=== PATIENT | male | born 1965 | race Caucasian/White ===

== ENCOUNTER 2019-03-30 00:38 | Emergency (ER) | payer OTHER ==
[~2019-03-30] VITALS: Ht 175.3 cm; Wt 81.7 kg
[2019-03-30] MEDS ORDERED: DIPHENHIST50 MG PO (00:55)
[2019-03-30] MEDS ORDERED: SUDAFED 12 HOU120 MG PO (00:56)
[2019-03-30 01:15] LABS: ABSOLUTE BASOPHILS 0.1 thou/uL (0.0-0.2); ABSOLUTE EOSINOPHILS 0.1 thou/uL (0.0-0.7); ABSOLUTE LYMPHOCYTES 2.2 thou/uL (0.8-5.3); ABSOLUTE MONOCYTES 1.3 thou/uL (0.0-1.2); ABSOLUTE NEUTROPHILS 7.3 thou/uL (1.6-8.1); BASOPHILS 0.7 %; EOSINOPHILS 0.6 %; HEMATOCRIT 47.3 % (42.0-52.0); HEMOGLOBIN 16.5 gm/dL (14.0-18.0); LYMPHOCYTES 20.4 %; MCH 33.5 pg (26.0-34.0); MCHC 34.9 g/dL (28.0-37.0); MCV 96.1 fL (80.0-100.0); MONOCYTES 11.7 %; MPV 9.6 fl. (7.2-11.1); NUCLEATED RBCS 0 /100WBC; PLATELET COUNT* 232 thou/uL (150-400); POLYS 66.6 %; RBC 4.92 mil/uL (4.50-6.00); RDW-CV 12.7 % (10.5-14.5); WBC 10.9 thou/uL (4.0-11.0)
[2019-03-30 01:21] LABS: URINE BILIRUBIN NEGATIVE (Negative); URINE BLOOD NEGATIVE (Negative); URINE CLARITY CLEAR; URINE COLOR YELLOW; URINE GLUCOSE-RANDOM NEGATIVE (Negative); URINE KETONES NEGATIVE (Negative); URINE LEUKOCYTES-REFLEX NEGATIVE (Negative); URINE NITRITE-REFLEX NEGATIVE (Negative); URINE PROTEIN 1+ (Negative); URINE SPECIFIC GRAVITY <= 1.005 (1.005-1.030); URINE UROBILINOGEN 0.2 E.U./dl (0.2-1.0)
[2019-03-30 01:28] LABS: CALCIUM 9.8 mg/dL (8.5-10.1); CREATININE 0.9 mg/dL (0.6-1.3); POTASSIUM 4.2 mmol/L (3.5-5.1)
[2019-03-30 01:32] LABS: MAGNESIUM 1.9 mg/dL (1.8-2.4); TOTAL BILIRUBIN 0.9 mg/dL (<0.1-1.0)
[2019-03-30] MEDS ORDERED: ZOFRAN ODT4 MG DISSOLVE (02:19)
[2019-03-30] MEDS ORDERED: NORCO 5-325 TA1 EAC1 PO (03:02)
[2019-03-30] MEDS ORDERED: LEVAQUIN 750 M750 MG PO (03:02)
[2019-03-30 03:16] VITALS: BP 130/84
--- NOTE | 2019-03-31 14:20 | EKG ---
[place] [address] ELECTROCARDIOGRAM REPORT Name: ROXANA HERR Room: [facility]#: [id number] Admission: 03/30/19 Attend Phys: Discharge: 03/30/19 Date of : 69 Report #: [id number] THIS REPORT FOR: //name// [facility] ED Test Date: 2019-03-30 Test Time: 01:00:20 Pat Name: ROXANA HERR Department: Room: Gender: Syrup Maker: : 1965 Requested By: Rob Henson Order Number: [id number] MD: Rusty Krishna Measurements Intervals [place] Rate: 113 P: 48 TN: 113 QRS: 74 QRSD: 86 T: 68 QT: 326 QTc: 447 Interpretive Statements Sinus tachycardia Baseline wander in lead(s) V2 No previous ECG available for comparison Electronically Signed On 03-31-2019 14:20:25 CDT by Rusty Krishna [email or web address] <ELECTRONICALLY SIGNED> By: Yash Krishna MD, [facility] 03/31/19 1420 0100 Yash Krishna MD, FACC /EPI
== END 2019-03-30 03:19 | disposition home or self-care (01) ==
LOC: M.ERS 00:38
PROVIDERS: Emergency Medicine Emergency Medical Services
DX: K52.9 Noninfective gastroenteritis and colitis, unspecified (principal)

== ENCOUNTER 2019-05-02 18:58 | Emergency (ER) | payer OTHER ==
[~2019-05-02] VITALS: Ht 175.3 cm; Wt 74.8 kg
[~2019-05-02 18:58] MED LIST: DIPHENHIST50 MG PO; LEVAQUIN 750 M750 MG PO; NORCO 5-325 TA1 EAC1 PO; SUDAFED 12 HOU120 MG PO; ZOFRAN ODT4 MG DISSOLVE
[2019-05-02 19:28] LABS: ABSOLUTE BASOPHILS 0.1 thou/uL (0.0-0.2); ABSOLUTE EOSINOPHILS 0.1 thou/uL (0.0-0.7); ABSOLUTE MONOCYTES 0.8 thou/uL (0.0-1.2); ABSOLUTE NEUTROPHILS 6.1 thou/uL (1.6-8.1); BASOPHILS 0.7 %; EOSINOPHILS 0.8 %; HEMATOCRIT 45.5 % (42.0-52.0); HEMOGLOBIN 15.9 gm/dL (14.0-18.0); LYMPHOCYTES 29.6 %; MCH 33.5 pg (26.0-34.0); MCHC 34.9 g/dL (28.0-37.0); MCV 96.2 fL (80.0-100.0); MONOCYTES 8.2 %; MPV 9.6 fl. (7.2-11.1); NUCLEATED RBCS 0 /100WBC; PLATELET COUNT* 241 thou/uL (150-400); POLYS 60.7 %; RBC 4.73 mil/uL (4.50-6.00)
[2019-05-02 19:33] LABS: CALCIUM 8.8 mg/dL (8.5-10.1); POTASSIUM 3.4 mmol/L (3.5-5.1)
[2019-05-02 19:43] LABS: ALBUMIN 3.9 g/dL (3.4-5.0); TOTAL BILIRUBIN 0.2 mg/dL (<0.1-1.0); TOTAL PROTEIN 8.4 g/dL (6.4-8.2)
[2019-05-02 19:52] LABS: BE -5.3 mmol/L (-2 to +3); PCO2 35.7 mmHg (35.0-45.0); pH 7.354 (7.340-7.450)
[2019-05-02 19:56] LABS: PO2 168.7 mmHg (75.0-100.0)
[2019-05-02 20:01] LABS: URINE BILIRUBIN NEGATIVE (Negative); URINE BLOOD TRACE (Negative); URINE CLARITY CLEAR; URINE COLOR YELLOW; URINE GLUCOSE-RANDOM NEGATIVE (Negative); URINE KETONES NEGATIVE (Negative); URINE LEUKOCYTES-REFLEX NEGATIVE (Negative); URINE NITRITE-REFLEX NEGATIVE (Negative); URINE PROTEIN NEGATIVE (Negative); URINE SPECIFIC GRAVITY <= 1.005 (1.005-1.030); URINE UROBILINOGEN 0.2 E.U./dl (0.2-1.0)
[2019-05-02 20:08] LABS: AMP/METHAMP Negative (Negative); BARBITURATES Negative (Negative); BENZODIAZEPINES Negative (Negative); COCAINE Negative (Negative); METHADONE Negative (Negative); OPIATES Negative (Negative); PCP Negative (Negative); THC Negative (Negative)
[2019-05-02] MEDS ORDERED: IPRAT-ALBUT 0.5-3 ML INH (20:40)
[2019-05-02] MEDS ORDERED: MEDROLDOSEPACK PO (20:40)
[2019-05-02] MEDS ORDERED: AUGMENTIN 500-1 EACH PO (20:40)
[2019-05-02 20:45] LABS: INFLUENZA A ANTIGEN Negative (Negative); INFLUENZA B ANTIGEN Negative (Negative)
[2019-05-02] MEDS ORDERED: NEBULIZER MISCELL (20:56)
[2019-05-02 21:14] VITALS: BP 104/74
--- NOTE | 2019-05-03 11:04 | EKG ---
[place] [address] ELECTROCARDIOGRAM REPORT Name: ROXANA HERR Room: [facility]#: [id number] Admission: 05/02/19 Attend Phys: Discharge: 05/02/19 Date of : 69 Report #: [id number] THIS REPORT FOR: //name// [facility] ED Test Date: 2019-05-02 Test Time: 19:06:45 Pat Name: ROXANA HERR Department: Room: Gender: General Foreman: : 1965 Requested By: Pamela Awan Order Number: [id number] MD: Andriy Reis Measurements Intervals [place] Rate: 126 P: 61 NV: 136 QRS: 70 QRSD: 86 T: 67 QT: 308 QTc: 446 Interpretive Statements Sinus tachycardia Compared to ECG 03/30/2019 01:00:20 No significant changes Electronically Signed On 05-03-2019 11:04:42 CONCRETE INSPECTOR by Andriy Reis [email or web address] <ELECTRONICALLY SIGNED> By: Andriy Reis MD, [facility] 05/03/19 1104 [id number] Andriy Reis MD, FACC /EPI
== END 2019-05-02 21:11 | disposition home or self-care (01) ==
LOC: M.ERS 18:58
PROVIDERS: Personal Emergency Response Attendant
DX: J98.01 Acute bronchospasm (principal); J02.9 Acute pharyngitis, unspecified; Z79.899 Other long term (current) drug therapy

== ENCOUNTER 2019-06-25 22:35 | Inpatient (IN) | payer OTHER ==
[~2019-06-25] VITALS: Ht 175.3 cm; Wt 78.0 kg
--- NOTE | ~2019-06-25 | H ---
[address] [address] HISTORY AND PHYSICAL Name: ROXANA HERR Room: [address] [place] .R.#: [id number] Admission: 06/25/19 Attend Phys: Jaclyn Greene MD Discharge: 06/26/19 Date of : 69 Report #: [id number] THIS REPORT FOR: //name// Patient was here less than 24 hour please refer to the final summation note. By: 0657Medical Records Staff KRISTOPHER /BEL
[~2019-06-25 22:35] MED LIST changes: +AUGMENTIN 500-1 EACH PO; +IPRAT-ALBUT 0.5-3 ML INH; +MEDROLDOSEPACK PO; +NEBULIZER MISCELL
[2019-06-25 22:51] VITALS: BP 165/89
[2019-06-25 23:18] LABS: HEMATOCRIT 45.6 % (42.0-52.0); HEMOGLOBIN 15.6 gm/dL (14.0-18.0); MCH 33.4 pg (26.0-34.0); MCHC 34.1 g/dL (28.0-37.0); MCV 97.9 fL (80.0-100.0); MPV 9.2 fl. (7.2-11.1); NUCLEATED RBCS 0 /100WBC; PLATELET COUNT* 262 thou/uL (150-400); RBC 4.66 mil/uL (4.50-6.00); RDW-CV 14.5 % (10.5-14.5); WBC 14.8 thou/uL (4.0-11.0)
[2019-06-25 23:24] LABS: CALCIUM 9.2 mg/dL (8.5-10.1); CREATININE 0.9 mg/dL (0.6-1.3)
[2019-06-25 23:25] LABS: PROTIME 10.4 Seconds (9.20-11.50)
[2019-06-25 23:34] LABS: ALBUMIN 4.1 g/dL (3.4-5.0); TOTAL BILIRUBIN 0.5 mg/dL (<0.1-1.0); TOTAL PROTEIN 8.4 g/dL (6.4-8.2)
[2019-06-26 00:56] VITALS: BP 176/98
[2019-06-26 01:00] VITALS: BP 166/102
[2019-06-26 01:02] LABS: ABSOLUTE LYMPHOCYTES 0.3 thou/uL (0.8-5.3); ABSOLUTE MONOCYTES 1.8 thou/uL (0.0-1.2); ABSOLUTE NEUTROPHILS 12.7 thou/uL (1.6-8.1); PLATELET ESTIMATE ADEQUATE
[2019-06-26 01:03] LABS: LARGE PLATELETS OCCASIONAL
--- NOTE | 2019-06-26 05:40 | NUR ---
PATIENT ARRIVED ON THE FLOOR ABOUT 0100. PATIENT ADMISSION HISTORY AND ASSESSMENT WAS COMPLETED CHARTED. STARTED IV FLUIDS ON PATIENT BUT PATIENT MADE ME UNHOOK HIS IV AT ABOUT 0200. PATIENT WAS FOUND SMOKING IN THE ROOM CLAIMED HE DID NOT KNOW HE WAS NOT ALLOWED TO SMOKE IN THE HOSPITAL. CIGARETTES AND LITER WERE TAKEN AWAY AT THIS TIME. PATIENT THEN BECAME VERY RESTLESS AND IMPULSULIVE STATING THIS WAS NOT A SENIOR LIVING. INFORMED PATIENT HE COULD WALK THE HALLS BUT COULD NOT LEAVE THE FLOOR. PATIENT WENT BACK INTO HIS ROOM FOR A LITTLE WHILE. THEN AT ABOUT 0515 PATIENT CAME OUT TO THE DESK ASKING I COULD TAKE HIM TO HIS MOTEL ON MY WAY HOME TO MAIN LINE STATION ENGINEER SOME STUFF. INFORMED PATIENT THAT I COULD NOT HE COULD CALL HIS . HE STATED SHE DID NOT ANSWER. PATIENT WAS UPSET INFORMED PATIENT THAT HE COULD LEAVE AMA IF HE WANTED TO JUST HAD TO SIGN AN AMA FORM AND WE TAKE OUT HIS IV. PATIENT SAID HE COULD JUST WALK TO HIS MOTEL. PATIENT SIGNED THE AMA FORM AND IV WAS TAKEN OUT. PATIENT WAS WALKED DOWN TO ER WITH FIRE CONTROL TECHNICIAN B AT ABOUT 0525.
--- NOTE | 2019-06-26 13:52 | EKG ---
[place] [address] ELECTROCARDIOGRAM REPORT Name: ROXANA HERR Room: [address] IN [facility]#: [id number] Admission: 06/25/19 Attend Phys: Jaclyn Greene MD Discharge: 06/26/19 Date of : 69 Report #: [id number] THIS REPORT FOR: //name// [facility] ED Test Date: 2019-06-25 Test Time: 23:05:26 Pat Name: ROXANA HERR Department: Room: [facility] Gender: M Hospice Home Health Aide: : 1965 Requested By: Polly Roland Order Number: [id number] MD: Andriy Reis Measurements Intervals [place] Rate: 102 P: 74 VA: 157 QRS: 66 QRSD: 84 T: 65 QT: 349 QTc: 455 Interpretive Statements Sinus tachycardia with pvc Left ventricular hypertrophy Compared to ECG 05/02/2019 19:06:45 pvc now noted Electronically Signed On 06-26-2019 13:51:26 SILVERING DEPARTMENT SUPERVISOR by Andriy Reis [email or web address] <ELECTRONICALLY SIGNED> By: Andriy Reis MD, [facility] 06/26/19 1351 2305 Andriy Reis MD, [facility] /EPI
== END 2019-06-26 05:25 | disposition left against medical advice (07) | DRG 440 ==
LOC: M.ERS 22:35 → M.TBA-ER 23:39 → M.3W 06-26 00:51
PROVIDERS: Emergency Medicine; ADMIT Internal Medicine
DX: K85.90 Acute pancreatitis without necrosis or infection, unspecified (principal); Z53.29 Procedure and treatment not carried out because of patient's decision for other reasons

== ENCOUNTER 2020-02-15 09:16 | Emergency (ER) | payer OTHER ==
[~2020-02-15] VITALS: Ht 175.3 cm; Wt 73.5 kg
[2020-02-15] MEDS ORDERED: NORCO 5-325 TA1 EAC2 PO (10:44)
[2020-02-15] MEDS ORDERED: AUGMENTIN 875-1 EACH PO (10:44)
[2020-02-15 10:52] VITALS: BP 155/91
== END 2020-02-15 10:53 | disposition home or self-care (01) ==
LOC: M.ERS 09:16
DX: S01.81XA Laceration without foreign body of other part of head, initial encounter (principal); H66.92 Otitis media, unspecified, left ear; V98.8XXA Other specified transport accidents, initial encounter; Y93.89 Activity, other specified; Y92.89 Other specified places as the place of occurrence of the external cause; Y99.9 Unspecified external cause status